=== PATIENT | female | born 1990 ===

== ENCOUNTER 2016-10-06 09:44 | Emergency (ER) | payer OTHER ==
[2016-10-06] MEDS ORDERED: Albuterol-Ipratrop 3 mg / 0.5 (3 ml) UD INH STA ×2 (10:16→12:33)
[2016-10-06] MEDS ORDERED: Albuterol-Ipratrop 3 mg / 0.5 (3 ml) UD ONE (10:19)
[2016-10-06 10:20] VITALS: BP 128/77; RESP 20; TEMP 98
--- NOTE | 2016-10-06 10:31 | ED PDOC ---
HPI: Asthma Time Seen by Provider: 10/06/16 10:03 Chief Complaint (Nursing): Shortness Of Breath Chief Complaint (Provider): asthma History Per: Patient History/Exam Limitations: no limitations Onset/Duration Of Symptoms: Days (x 1 ) Additional Complaint(s): Anna Erazo is a 25 year old female, with a previous medical history of asthma, who presents to the ED with complaints of shortness of breath associated with cough and wheezing since last night. Patient states symptoms are consistent with previous asthmatic symptoms. She believes changes in weather last night triggered these symptoms and reports no relief with albuterol treatments taken at home. Patient denies any previous intubations or hospital admissions for asthma. PMD: none provided Past Medical History Vital Signs: Last Vital Signs Temp 98 F 10/06/16 10:19 Pulse 94 H 10/06/16 10:19 Resp 20 10/06/16 10:19 BP 128/77 10/06/16 10:19 Pulse Ox 99 10/06/16 10:19 - Medical History PMH: Asthma - Family History Family History: States: Unknown Family Hx - Living Arrangements Living Arrangements: With Family - Social History Current smoker - smoking cessation education provided: Yes - Home Medications Home Medications: Ambulatory Orders Medication Instructions Recorded Albuterol 0.083% [Albuterol 0.083% 2.5 mg IH Q4 PRN #20 neb 10/06/16 Inhal Vania (2.5 mg/3 ml) UD] Albuterol HFA [Ventolin HFA 90 1 - 2 puff IH Q4 PRN #1 inhaler 10/06/16 mcg/actuation (8 g)] Prednisone 50 mg PO DAILY #4 tab 10/06/16 - Allergies Allergies/Adverse Reactions: Allergies Allergy/AdvReac Type Severity Reaction Status Date / Time No Known Allergies Allergy Verified 10/06/16 10:01 Review of Systems ROS Statement: Except As Marked, All Systems Reviewed And Found Negative Constitutional: Negative for: Fever, Chills Cardiovascular: Negative for: Chest Pain Respiratory: Positive for: Cough, Shortness of Breath, Wheezing. Negative for: Sputum Physical Exam - Reviewed Nursing Documentation Reviewed: Yes Vital Signs Reviewed: Yes - Physical Exam Appears: Positive for: Well, Non-toxic, No Acute Distress Head Exam: Positive for: ATRAUMATIC, NORMAL INSPECTION, NORMOCEPHALIC Skin: Positive for: Normal Color, Warm, Dry ENT: Positive for: Normal ENT Inspection Neck: Positive for: Normal, Painless ROM, Supple Cardiovascular/Chest: Positive for: Regular Rate, Rhythm Respiratory: Positive for: Wheezing (bilaterally ). Negative for: Decreased Breath Sounds, Accessory Muscle Use, Respiratory Distress Gastrointestinal/Abdominal: Positive for: Normal Exam, Bowel Sounds, Soft. Negative for: Tenderness Extremity: Positive for: Normal ROM. Negative for: Tenderness, Pedal Edema, Deformity, Swelling Neurologic/Psych: Positive for: Alert, Oriented - ECG O2 Sat by Pulse Oximetry: 99 (RA) Pulse Ox Interpretation: Normal Medical Decision Making Medical Decision Making: Initial Impression: asthma exacerbation Initial Plan: * duoneb * solu-medrol * peak flow pre/post treatment * reevaluation Reevaluation: test was positive and patient was informed. Patient with no symptoms of pain and bleeding therefore incidental. Over course of ER stay, asthma symptoms have improved. Time: 1500 Patient has no wheezing. Patient given smoking cessation education. Stale for discharge home, informed to follow up with OB and PCP for asthma. Scribe Attestation: Documented by Christina Ortiz and Cayla Goldman, acting as a scribe for Briejsh Ma DO. Provider Scribe Attestation: All medical record entries made by the Scribe were at my direction and personally dictated by me. I have reviewed the chart and agree that the record accurately reflects my personal performance of the history, physical exam, medical decision making, and the department course for this patient. I have also personally directed, reviewed, and agree with the discharge instructions and disposition. Disposition - Clinical Impression Clinical Impression: Asthma exacerbation, - Patient ED Disposition Is Patient to be Admitted: No Counseled Patient/Family Regarding: Studies Performed, Diagnosis, Need For Followup, Rx Given - Disposition [facility]errals[facility]] Disposition: Routine/Home Disposition Time: 14:55 Condition: STABLE Additional Instructions: See OB doctor as directed for evaluation of early . Use albuterol as directed for asthma, start prednisone if no improvement by tonight. There may be risk of harm with prednisone. stop smoking! Prescriptions: Albuterol 0.083% [Albuterol 0.083% Inhal Vania (2.5 mg/3 ml) UD] 2.5 mg IH Q4 PRN #20 neb PRN Reason: Wheezing Albuterol HFA [Ventolin HFA 90 mcg/actuation (8 g)] 1 - 2 puff IH Q4 PRN #1 inhaler PRN Reason: Shortness Of Breath Prednisone 50 mg PO DAILY #4 tab Instructions: Asthma (ED), How to Stop Smoking (ED), First Trimester (ED) Forms: [facility] ED School/Work Excuse
[2016-10-06 16:13] VITALS: PULSE 90
--- NOTE | 2016-10-09 15:24 | CARD ---
APPROVED REPORT EKG Measurement Heart [id number] <Conclusion> Normal sinus rhythm Normal ECG
[2016-10-10 13:30] VITALS: O2SAT 99
== END 2016-10-06 15:21 | disposition home or self-care (01) ==
LOC: EDSEX 09:44 → H.ER 09:44
DX: J45.901 Unspecified asthma with (acute) exacerbation (principal); Z32.01 Encounter for pregnancy test, result positive; F17.200 Nicotine dependence, unspecified, uncomplicated

== ENCOUNTER 2016-10-12 12:18 | Emergency (ER) | payer OTHER ==
[2016-10-12 12:31] VITALS: BP 134/62; PULSE 70; RESP 17; TEMP 98; O2SAT 99
[2016-10-12 13:14] LABS: RBC URINE 26 /hpf (0-3); URINE BACTERIA RARE (<OCC); URINE BILIRUBIN NEGATIVE (NEGATIVE); URINE BLOOD LARGE (NEGATIVE); URINE COLOR AMBER (YELLOW); URINE GLUCOSE (UA) NEG (Normal); URINE KETONE TRACE mg/dL (NEGATIVE); URINE LEUKOCYTE ESTERASE MOD Leu/uL (Negative); URINE PROTEIN 100 mg/dL (NEGATIVE); WBC URINE 30 /hpf (0-5)
[2016-10-12 13:24] LABS: MEAN CELL VOLUME 87.4 fl (81.0-99.0); MEAN CORPUSCULAR HEMOGLOBIN 28.6 pg (27.0-31.0); MEAN CORPUSCULAR HGB CONC 32.7 g/dL (33.0-37.0)
[2016-10-12 13:25] LABS: ALB/GLOB RATIO 1.2 (1.0-2.1); ALKALINE PHOSPHATASE 43 U/L (38-126); ALT/SGPT 34 U/L (9-52); AST/SGOT 21 U/L (14-36); BILIRUBIN,TOTAL 0.7 mg/dl (0.2-1.3); BLOOD UREA NITROGEN 5 mg/dl (7-17); CALCIUM 9.4 mg/dL (8.4-10.2); CARBON DIOXIDE 18 mmol/L (22-30); CHLORIDE 106 mmol/L (98-107); GFR AFRICAN-AMERICAN > 60; GLUCOSE,RANDOM 109 mg/dL (65-105); POTASSIUM 3.9 MMOL/L (3.6-5.0); SODIUM 138 mmol/l (132-148); TOTAL PROTEIN 7.6 G/DL (6.3-8.2)
[2016-10-12 13:43] LABS: PARTIAL THROMBOPLASTIN TIME 27.9 Seconds (25.6-37.1)
--- NOTE | 2016-10-12 14:06 | ED PDOC ---
HPI: Female Pain Time Seen by Provider: 10/12/16 12:23 Chief Complaint (Nursing): Female Genitourinary Chief Complaint (Provider): Vaginal bleeding in , History Per: Patient History/Exam Limitations: no limitations Onset/Duration Of Symptoms: Hrs (3) Current Symptoms Are (Timing): Still Present Severity: None Additional Complaint(s): Pt states she was in ER last week for her asthma and had a positive test. Pt states she began bleeding today a few hours [employer]. Pt denies pain. Pt states her last normal menses was 09/06/16. Pt reports spontaneous miscarriage 1 year ago when she was 4-5 weeks gestation. Past Medical History Reviewed: Historical Data, Nursing Documentation, Vital Signs Vital Signs: Last Vital Signs Temp 98 F 10/12/16 12:28 Pulse 70 10/12/16 12:28 Resp 17 10/12/16 12:28 BP 134/62 10/12/16 12:28 Pulse Ox 99 10/12/16 12:28 - Medical History PMH: Asthma - Surgical History Surgical History: No Surg Hx - Family History Family History: States: Unknown Family Hx - Living Arrangements Living Arrangements: With Family - Social History Current smoker - smoking cessation education provided: No Alcohol: None Drugs: Denies - Home Medications Home Medications: Ambulatory Orders Medication Instructions Recorded Albuterol 0.083% [Albuterol 0.083% 2.5 mg IH Q4 PRN #20 neb 10/06/16 Inhal Vania (2.5 mg/3 ml) UD] Albuterol HFA [Ventolin HFA 90 1 - 2 puff IH Q4 PRN #1 inhaler 10/06/16 mcg/actuation (8 g)] Prednisone 50 mg PO DAILY #4 tab 10/06/16 - Allergies Allergies/Adverse Reactions: Allergies Allergy/AdvReac Type Severity Reaction Status Date / Time No Known Allergies Allergy Verified 10/06/16 10:01 Review of Systems ROS Statement: Except As Marked, All Systems Reviewed And Found Negative Genitourinary Female: Positive for: Vaginal Bleeding Physical Exam - Reviewed Nursing Documentation Reviewed: Yes Vital Signs Reviewed: Yes - Physical Exam Appears: Positive for: Well, Non-toxic, No Acute Distress Head Exam: Positive for: ATRAUMATIC, NORMAL INSPECTION, NORMOCEPHALIC Skin: Positive for: Normal Color, Warm, DRY Eye Exam: Positive for: Normal appearance ENT: Positive for: Normal ENT Inspection Neck: Positive for: Normal, Painless ROM Cardiovascular/Chest: Positive for: Regular Rate, Rhythm Respiratory: Positive for: Normal Breath Sounds. Negative for: Accessory Muscle Use, Respiratory Distress Gastrointestinal/Abdominal: Positive for: Normal Exam, Bowel Sounds, Soft. Negative for: Tenderness Back: Positive for: Normal Inspection Extremity: Positive for: Normal ROM Neurologic/Psych: Positive for: Alert, Oriented - Laboratory Results Result Diagrams: 10/12/16 13:05 10/12/16 13:05 - ECG O2 Sat by Pulse Oximetry: 99 Medical Decision Making Medical Decision Making: IUP 12 6 Disposition - Clinical Impression Clinical Impression: Vaginal bleeding in - Patient ED Disposition Is Patient to be Admitted: No Counseled Patient/Family Regarding: Diagnosis, Need For Followup - Disposition [facility]errals[facility]] Disposition: Routine/Home Disposition Time: 17:46 Condition: GOOD Additional Instructions: Please begin vitamins. Instructions: First Trimester Vaginal Bleed (ED)
--- NOTE | 2016-10-12 17:16 | US ---
OB ultrasound dated 10/12/2016. History: Vaginal bleeding. Sonographic evaluation of the uterus performed. Findings: The current study reveals a single living intrauterine gestation in breech presentation. The placenta is posteriorly located free of the cervical os. Measurements: BPD: 1.92 cm = 13 weeks 0 days HC: 7.66 cm = 13 weeks 2 days AC: 6.6 cm = 13 weeks 2 days FL: 0.79 cm = 12 weeks 3 days Average ultrasound age: 12 weeks 6 days +/-0 weeks 6 days Heart rate: 146 BPM Right ovary measures approximately 5.0 x 4.0 x 2.0 cm right ovary exhibits arterial flow. Left ovary measures 3.0 x 3.0 x 2.2 cm and also exhibits arterial flow. No evidence of free fluid seen in the cul de sac Impression: Single living intrauterine gestation in breech presentation with average ultrasound age approximately 12 weeks 6 days +/-0 weeks 6 days. Heart rate document 146 BPM see above discussion for additional details
== END 2016-10-12 17:55 | disposition home or self-care (01) ==
LOC: H.ER 12:18
DX: O20.9 Hemorrhage in early pregnancy, unspecified (principal); Z3A.12 12 weeks gestation of pregnancy

== ENCOUNTER 2017-01-14 00:52 | Emergency (ER) | payer OTHER ==
[2017-01-14 01:57] VITALS: PULSE 88; RESP 16; TEMP 97.5
--- NOTE | 2017-01-14 02:09 | ED PDOC ---
HPI: Chest Pain Time Seen by Provider: 01/14/17 01:18 Chief Complaint (Nursing): Chest Pain Chief Complaint (Provider): chest pain History Per: Patient History/Exam Limitations: no limitations Onset/Duration Of Symptoms: Days (4), Waxing/Waning Current Symptoms Are (Timing): Still Present Quality: Sharp, Tightness Additional History Per: Patient Additional Complaint(s): 26 y/o female, approx 26 weeks gestation, presents with intermittent chest pain x 4 days. Patient states pain begins as sharp, left-sided pain, then turns in to diffuse tightness across the chest, with associated tingling to right hand. Patient states symptoms last a few minutes then resolve. Denies fever, headache , dizziness, nausea/vomiting, shortness of breath, palpitations, abdominal pain , vaginal bleeding/discharge, leg pain/swelling, recent travel. Past Medical History Reviewed: Historical Data, Nursing Documentation, Vital Signs Vital Signs: Last Vital Signs Temp 97.5 F L 01/14/17 01:49 Pulse 88 01/14/17 02:21 Resp 16 01/14/17 02:21 BP 151/82 H 01/14/17 01:49 Pulse Ox 100 01/14/17 02:21 - Medical History PMH: Asthma - Surgical History Surgical History: No Surg Hx - Family History Family History: States: Unknown Family Hx - Home Medications Home Medications: Ambulatory Orders Medication Instructions Recorded Albuterol 0.083% [Albuterol 0.083% 2.5 mg IH Q4 PRN #20 neb 10/06/16 Inhal Vania (2.5 mg/3 ml) UD] Albuterol HFA [Ventolin HFA 90 1 - 2 puff IH Q4 PRN #1 inhaler 10/06/16 mcg/actuation (8 g)] Prednisone 50 mg PO DAILY #4 tab 10/06/16 metroNIDAZOLE [Flagyl] 500 mg PO BID #14 tab 10/12/16 - Allergies Allergies/Adverse Reactions: Allergies Allergy/AdvReac Type Severity Reaction Status Date / Time No Known Allergies Allergy Verified 10/06/16 10:01 Review of Systems ROS Statement: Except As Marked, All Systems Reviewed And Found Negative Cardiovascular: Positive for: Chest Pain Physical Exam - Reviewed Nursing Documentation Reviewed: Yes Vital Signs Reviewed: Yes - Physical Exam Appears: Positive for: Well, Non-toxic, No Acute Distress Head Exam: Positive for: ATRAUMATIC, NORMAL INSPECTION, NORMOCEPHALIC Skin: Positive for: Normal Color Eye Exam: Positive for: Normal appearance ENT: Positive for: Normal ENT Inspection Cardiovascular/Chest: Positive for: Regular Rate, Rhythm Respiratory: Positive for: Normal Breath Sounds Gastrointestinal/Abdominal: Positive for: Normal Exam Back: Positive for: Normal Inspection Extremity: Positive for: Normal ROM Neurologic/Psych: Positive for: Alert, Oriented - Laboratory Results Result Diagrams: 01/14/17 02:20 01/14/17 02:20 - ECG ECG: Positive for: Viewed By Me (reviewed by ED attending) ECG Rhythm: Positive for: Sinus Rhythm O2 Sat by Pulse Oximetry: 700 - Radiology X-Ray: Viewed By Me X-Ray Interpretation: No Acute Disease - Progress ED Course And Treament: labs, ekg Patient educated on findings, discharged with instructions to follow up PMD 2-3 days. Return to ED for worsening/concerning symptoms. Disposition - Clinical Impression Clinical Impression: Atypical chest pain, Paresthesia - Patient ED Disposition Is Patient to be Admitted: No Counseled Patient/Family Regarding: Studies Performed, Diagnosis, Need For Followup - Disposition Disposition: Routine/Home Disposition Time: 03:42 Condition: STABLE Instructions: Chest Pain (ED), Paresthesia (ED)
[2017-01-14 02:31] LABS: BASO % 0.3 % (0.0-2.0); EOS # 0.2 K/uL (0.0-0.7); EOS % 1.8 % (0.0-4.0); HEMATOCRIT 35.9 % (34.0-47.0); LYMPH # 2.9 K/uL (1.0-4.3); LYMPH % 22.6 % (20.0-40.0); MEAN CELL VOLUME 88.1 fl (81.0-99.0); MEAN CORPUSCULAR HEMOGLOBIN 28.1 pg (27.0-31.0); MEAN CORPUSCULAR HGB CONC 31.9 g/dL (33.0-37.0); MEAN PLATELET VOLUME 9.2 fl (7.2-11.7); MONO # 0.9 K/uL (0.0-0.8); MONO % 7.4 % (0.0-10.0); NEUT # 8.7 K/uL (1.8-7.0); NEUT % 67.9 % (50.0-75.0); NRBC % 0.1 % (0.0-0.0); RED CELL DISTRIBUTION WIDTH 12.9 % (11.5-14.5); WHITE BLOOD COUNT 12.9 K/uL (4.8-10.8)
[2017-01-14 02:41] LABS: ALB/GLOB RATIO 1.2 (1.0-2.1); ALKALINE PHOSPHATASE 67 U/L (38-126); ALT/SGPT 23 U/L (9-52); AST/SGOT 17 U/L (14-36); BILIRUBIN,TOTAL 0.4 mg/dl (0.2-1.3); BLOOD UREA NITROGEN 6 mg/dl (7-17); CALCIUM 9.1 mg/dL (8.4-10.2); CARBON DIOXIDE 20 mmol/L (22-30); CHLORIDE 104 mmol/L (98-107); GFR AFRICAN-AMERICAN > 60; GLUCOSE,RANDOM 92 mg/dL (65-105); SODIUM 137 mmol/l (132-148)
[2017-01-14 03:58] VITALS: BP 115/68; O2SAT 700
--- NOTE | 2017-01-14 10:32 | CARD ---
APPROVED REPORT EKG Measurement Heart [id number] <Conclusion> Normal sinus rhythm Normal ECG
== END 2017-01-14 03:43 | disposition home or self-care (01) ==
LOC: H.ER 00:52
DX: R07.89 Other chest pain (principal); R20.2 Paresthesia of skin; O26.892 Other specified pregnancy related conditions, second trimester; Z3A.26 26 weeks gestation of pregnancy; O99.512 Diseases of the respiratory system complicating pregnancy, second trimester; J45.909 Unspecified asthma, uncomplicated

== ENCOUNTER 2017-04-07 15:17 | Emergency (ER) | payer MEDICAID ==
[2017-04-07 15:35] VITALS: BMI 44.7
--- NOTE | 2017-04-07 16:19 | OBHP ---
Datetime: 04/07/2017 16:08 IP Adm Impression: Term, intrauterine ; No Active Labor IP Chief Complaint Other: Vaginal Spotting after wiping IP Adm Impression Other: Spotting IP Admit Plan: Observation/Evaluation; Discharge home Admit Comment, IP Provider: 26yo with IUP at 38.3wks presenting to the [facility] with a c/o some vag inal spotting after wiping. She denies any previous episode. Bryant at the beginning of the preg fatimah. PNC at [facility]. Uncomplicated course. TOCo- Irritability FHR- Category 1, Cx- 0/0/-3. Speculum exam- Negative. Assessment: IUP at 38wks Vaginal Bleeding, not found NST - reactive. Plan Pt reassured and labor instructions given. D/C Home F/U with OB Doctor. Questions from Pt answered. Extremities - PN: Normal Abdomen - PN: Normal Back - PN: Normal Lungs - PN: Normal Heart - PN: Normal Neurologic - PN: Normal General - PN: Normal Presentation-Admit: Vertex FHR - Baseline A Provider: 130 Membranes, Provider: Intact Comments, ACOG Physical Exam: Abd: Soft, NT, BS- present Speculum exam: No lesions identified on the vulva or vagina. Cervix appears normal. No evidence of bleeding or blood seen. Cervix appeared closed. Gestation - Est Wks by US: 38.3 Vital Signs Provider: Reviewed IP Chief Complaint: Maternal discomfort; Other NICHD Variability Prov Fetus A: Moderate 6-25bpm NICHD Accel Fetus A IP Provider: [id number] FHR Category Provider Fetus A: Category I NICHD Decel Fetus A IP Provider: None Dilatation, Provider: 0 Effacement, Provider: 0 Station, Provider: -3 Genitourinary Exam: Normal
[2017-04-07 21:47] VITALS: BP 111/59; PULSE 120
== END 2017-04-07 16:35 | disposition home or self-care (01) ==
LOC: H.EROB2 15:17
DX: O26.853 Spotting complicating pregnancy, third trimester (principal); Z3A.38 38 weeks gestation of pregnancy; O47.1 False labor at or after 37 completed weeks of gestation

== ENCOUNTER 2017-04-11 05:43 | Inpatient (IN) | payer MEDICAID ==
[2017-04-11] MEDS: Lactated Ringer's 1,000 ML IV SCH ×5 (08:30→20:00)
[2017-04-11 08:35] LABS: BASO % 0.4 % (0.0-2.0); EOS # 0.1 K/uL (0.0-0.7); EOS % 1.1 % (0.0-4.0); HEMATOCRIT 37.5 % (34.0-47.0); LYMPH # 2.6 K/uL (1.0-4.3); LYMPH % 20.2 % (20.0-40.0); MEAN CELL VOLUME 85.6 fl (81.0-99.0); MEAN CORPUSCULAR HEMOGLOBIN 27.6 pg (27.0-31.0); MEAN CORPUSCULAR HGB CONC 32.2 g/dL (33.0-37.0); MEAN PLATELET VOLUME 9.5 fl (7.2-11.7); MONO % 7.6 % (0.0-10.0); NEUT % 70.7 % (50.0-75.0); RED CELL DISTRIBUTION WIDTH 13.3 % (11.5-14.5); WHITE BLOOD COUNT 12.8 K/uL (4.8-10.8)
--- NOTE | 2017-04-11 08:55 | OBPN ---
Datetime: 04/11/2017 08:50 IP Informed Consent Obtain: Vaginal Delivery IP Procedures: Sterile Vag Exam Membranes, Provider: Intact Contraction Comments Provider: q 3 mins FHR - Baseline A Provider: 135 IP Progress Note Comment: Patient evaluated VE=FT/Thick/high FHR = 135 mod jessica, no accels, no decels TOCO = ctxning q 3-4 mins A/P 1. Will start Cytotec 50mcg PO q 4 hrs, and will have patient have diet 2. CEFM and TOCO 3. Re-evaluate as needed Vital Signs Provider: Reviewed; Within Normal Limits NICHD Variability Prov Fetus A: Moderate 6-25bpm Dilatation, Provider: FT Effacement, Provider: Thick Station, Provider: -3 NICHD Decel Fetus A IP Provider: None Datetime: 04/11/2017 07:00 Pool Provider: Positive Nitrazine Provider: Negative Gestation - Est Wks by US: 39.0 Presentation-Admit: Vertex NICHD Accel Fetus A IP Provider: [id number] FHR Category Provider Fetus A: Category I
[2017-04-11] MEDS ORDERED: Nalbuphine 20 mg/ml Inj (1 ml) IVP PRN (18:58)
[2017-04-11] MEDS ORDERED: Fentanyl/Bupivacaine HCl 250 ML EPI ONE (19:57)
[2017-04-12] MEDS: Lactated Ringer's 1,000 ML IV SCH (04:00)
--- NOTE | 2017-04-12 11:38 | OBPN ---
Datetime: 04/12/2017 11:34 FHR - Baseline A Provider: 120 Presentation-Admit: Vertex IP Progress Note Comment: s: no c/o- comfortable with epidural i: 39.1wk induction for prom s/p cytotec x6 p: begin pitocin. plan d/w pt FHR Category Provider Fetus A: Category I NICHD Variability Prov Fetus A: Moderate 6-25bpm Dilatation, Provider: 3 Effacement, Provider: 80 Station, Provider: -3 NICHD Decel Fetus A IP Provider: None
[2017-04-12] MEDS ORDERED: Oxytocin 30 UNITS in Sodium Chloride 0.9% 500 ML IV SCH ×3 (11:45→22:35)
[2017-04-12] MEDS ORDERED: Fentanyl/Bupivacaine HCl 250 ML EPI ONE (14:38)
[2017-04-12] MEDS ORDERED: Oxycodone/Acetaminophen 5/325 mg Tab PO PRN ×2 (16:20→22:35)
[2017-04-12] MEDS ORDERED: Bupivacaine HCl 0.25% PF (10 ml) Inj ONE (16:42)
[2017-04-12] MEDS ORDERED: AMPicillin 2 GM in Sodium Chloride 0.9% 100 ML IVPB STA (17:43)
[2017-04-12] MEDS ORDERED: Oxytocin 30 UNITS in Sodium Chloride 0.9% 500 ML IV ONE (20:25)
[2017-04-12] MEDS ORDERED: AMPicillin 1 GM in Sodium Chloride 0.9% 100 ML IVPB SCH (21:45)
[2017-04-12] MEDS ORDERED: Lactated Ringer's 1,000 ML IV SCH (22:35)
--- NOTE | 2017-04-12 22:50 | OBDS ---
DELIVERY PERSONNEL Delivery Doctor: Nael Toussaint MD Talent Acquisition Program Manager: Jimmy White RN Anesthesiologist: Cristina Riggs MD Resident: Dr. Benjamin Rendon MATERNAL INFORMATION Delivery Anesthesia: Epidural Medications in Delivery: Pitocin Estimated Blood Loss (ml): 200 Placenta Cultured: No Maternal Complications: Premature Rupture of Membranes Provider Comments: Pt placed in the dorsal lithotomy position, prepped and draped in sterile fashion . Over a intact perineum, normal spontaneous vaginal delivery of live male infant, with epidural anes thesia, no nucchal cord, placed on mother abdomen, oropharynx and nasopharynx bulb-suctioned. Cord clamped and cut, blood collected. 9/9. Spontaneous delivery of placenta manually with 3-v essel cord. 2nd degree perineal laceration repaired. EBL 200cc. compound presentation with rue LABOR SUMMARY EDC: 04/18/2017 00:00 No. Babies in Womb: 1 Attempted: No Labor Anesthesia: Epidural LABOR INFORMATION Reason for Induction: Premature Rupture of Membranes Onset of Labor: 04/12/2017 16:29 Complete Dilatation: 04/12/2017 19:10 Cervical Ripening Agents: Cytotec @ (Annotations: 6th and final dose of cytotec given ) Oxytocin: Induction Group B Beta Strep: Not Done Antibiotics # of Doses: 1 Antibiotics Time of Last Dose: 1809 Steroids Given: None Reason Steroids Not Administered: Not Applicable MEMBRANES Membranes Rupture Method: Spontaneous Rupture of Membranes: 04/11/2017 05:00 Length of Rupture (hrs): 38.67 Amniotic Fluid Color: Clear Amniotic Fluid Amount: Large Amniotic Fluid Odor: Normal STAGES OF LABOR Stage 1 hrs: 2 Stage 1 min: 41 Stage 2 hrs: 0 Stage 2 min: 30 Stage 3 hrs: 0 Stage 3 min: 6 Total Time in Labor hrs: 3 Total Time in Labor min: 17 VAGINAL DELIVERY Episiotomy: None Laceration Extension: Second Degree Laceration Type: Perineal; Vaginal Laceration Repair: Yes Laceration Repair Note: Repair of 2nd degree vaginal and perineal laceration with 3-0 polysorb. Initial Vag Sponge Count: 5 Final Vag Sponge Count: 5 Initial Vag Sharps Count: 1 Final Vag Sharps Count: 1 Sponge Count Correct: Yes Sharps Count Correct: Yes Count Comment: Laps 5 Instruments 15 Sharps 1 all count correct and acknowledge BABY A INFORMATION Delivery Date/Time: 04/12/2017 19:40 Method of Delivery: Vaginal Born in Route : No : N/A Forceps: N/A Vacuum Extraction: N/A Shoulder Dystocia : No SHOULDER DYSTOCIA BABY A Delivery Date/Time: 04/12/2017 19:40 PRESENTATION/POSITION BABY A Presentation: Compound Breech Presentation: N/A PLACENTA INFORMATION BABY A Placenta Delivery Time : 04/12/2017 19:46 Placenta Method of Delivery: Spontaneous Placenta Status: Delivered SCORES BABY A Heart Rate 1 min: >100 bpm Resp Effort 1 min: Good Cry Reflex Irritability 1 min: Cough or Sneeze or Pulls Away Muscle Tone 1 min: Active Motion Color 1 min: Body [place], Extremities Blue Resuscitation Effort 1 min: Tactile Stimulation SCORE 1 MIN: 9 Heart Rate 5 min: >100 bpm Resp Effort 5 min: Good Cry Reflex Irritability 5 min: Cough or Sneeze or Pulls Away Muscle Tone 5 min: Active Motion Color 5 min: Body [place], Extremities Blue Resuscitation Effort 5 min: N/A SCORE 5 MIN: 9 INFORMATION BABY A Gestational Age at Delivery: 39.1 Gestational Status: Term Outcome : Liveborn Infant Condition : Stable Infant Sex: Male IDENTIFICATION/MEDS BABY A ID Band Number: [id number] ID Band Location: Left Leg; Left Arm WEIGHT/LENGTH BABY A Birthweight (gms): 3305 Infant Weight (lb): 7 Weight (oz): 5 CORD INFORMATION BABY A No. Cord Vessels: 3 Nuchal Cord : N/A Cord Blood Taken: Yes Suction: Mouth; Nose ASSESSMENT BABY A Complications: None Physical Findings at Delivery: Within Normal Limits Infant Respirations: Appears Normal [employer] Consultant/ALS Called : No Infant Care By: Samuel RN Transferred To: Remains with Mother
[2017-04-12] MEDS ORDERED: Albuterol 0.083% Inhal Sol (2.5 mg/3 mL) UD INH PRN (23:54)
[2017-04-13] MEDS ORDERED: Albuterol HFA 90 mcg/actuation (8 g) INH PRN (00:21)
[2017-04-13 06:18] LABS: HEMATOCRIT 31.8 % (34.0-47.0); MEAN CELL VOLUME 84.7 fl (81.0-99.0); MEAN CORPUSCULAR HEMOGLOBIN 27.9 pg (27.0-31.0); MEAN CORPUSCULAR HGB CONC 32.9 g/dL (33.0-37.0); RED CELL DISTRIBUTION WIDTH 13.5 % (11.5-14.5); WHITE BLOOD COUNT 12.8 K/uL (4.8-10.8)
--- NOTE | 2017-04-13 11:43 | OBPPN ---
Datetime: 04/13/2017 07:42 PP Pain Prov: Within normal limits PP Nausea Prov: Denies PP Flatus Prov: Yes PP BM Prov: No PP Heart Prov: Normal PP Lungs Prov: Normal PP Abdomen/Uterus Prov: Normal PP Lochia Prov: Normal PP CVA Tenderness Prov: Normal PP Extremities Prov: Normal PP C/S Incision Prov: Not Applicable PP Progress Prov: Normal PP Impression Prov: Normal progression PP Plan Prov: Continue present management PP Progress Note Prov: 26 y/o F now on PPD1. Pt had a on 04/12 with NO complications. Pt reports feeling well. No acute events overnight. Pain is mild and tolerable. Pt urinating and ambu lating without difficulties. Pt is passing gasses but NO bowel movement. Pt afebrile and tolerating P O. Lochia is improving and decreasing in quantity. Pt trying to breastfeed but mainly providing formu la for now. Pt denies fever, headache, visual disturbances, CP, SOB, N/V or pruritus. PE Gen: Pt resting comfortably on bed, AAOx3, not in acute distress. Lungs: CTA B/L. No W/R/R. CV: S1 S2 present, regular rhythm. Abd: BS+, soft, fundus of uterus firm and bellow umbilicus. Ext: no edema, neg Lula's sign, non-tender calves. NEURO/PSYCH: no grossly focal deficit, preserved affect and mood. A/P: 26 y/o F on PPD 2, recovering well. -Continue medical management - and ambulation encouraged. Case discussed with OB production or plant engineer. Benjamin PGY-1. Addendum by Dr. Barrios: I have evaluated the patient independently and I agree with the above IP PP Procedures: None Vital Signs Provider PP: Reviewed
[2017-04-13] MEDS ORDERED: Lidocaine 1% 20 MG/2 ML PF AMP SC ONE (12:24)
[2017-04-14 20:40] VITALS: BP 123/63; PULSE 97; RESP 20; TEMP 97.8; O2SAT 99
--- NOTE | 2017-04-15 11:05 | OBPPN ---
Datetime: 04/14/2017 08:42 PP Pain Prov: Within normal limits PP Nausea Prov: Denies PP Flatus Prov: Yes PP BM Prov: Yes PP Heart Prov: Normal PP Lungs Prov: Normal PP Abdomen/Uterus Prov: Normal PP Lochia Prov: Normal PP CVA Tenderness Prov: Normal PP Extremities Prov: Normal PP C/S Incision Prov: Not Applicable PP Progress Prov: Normal PP Impression Prov: Normal progression PP Plan Prov: Discharge PP Progress Note Prov: 26 y/o F now on PPD2. Pt had a on 04/12 with NO complications. Pt reports feeling well. No acute events overnight. No pain. Pt urinating and ambulating without diff iculties. Pt is passing gasses but NO bowel movement. Pt afebrile and tolerating PO. Lochia is less t perkins menses. Pt trying to breastfeed but mainly providing formula for now. Pt denies fever, headache, visual disturbances, CP, SOB, N/V or pruritus. PE Gen: Pt resting comfortably on bed, AAOx3, not in acute distress. Lungs: CTA B/L. No W/R/R. CV: S1 S2 present, regular rhythm. Abd: BS+, soft, fundus of uterus firm and bellow umbilicus. Ext: no edema, neg Lula's sign, non-tender calves. NEURO/PSYCH: no grossly focal deficit, preserved affect and mood. A/P: 26 y/o F on PPD 2, recovering well. -Will discharged pt home today. -Encourage . -Continue PNV 1 tab PO daily. -Ibuprofen 600mg PO PRN for moderate/severe pain. -Ambulate with caution, no heavy lifting, nothing per vagina for 6 weeks. -If excessive bleeding, intolerable pain or fever despite medication, go to ER. - F/U with clinic within 4-6 weeks for post- evaluation. Case discussed with OB director of instruction. Benjamin PGY-1. OB H addendum: Patient seen and examined by me agree with above assessment and plan. IP PP Procedures: None Vital Signs Provider PP: Reviewed
== END 2017-04-14 15:37 | disposition home or self-care (01) | DRG 775 ==
LOC: H.EROB2 05:43 → H.L&D 07:35 → H.OB/GYN 04-12 22:15
PROVIDERS: ADMIT Obstetrics & Gynecology; ATTEND Obstetrics & Gynecology
PROC: 4A1HXCZ Monitoring of Products of Conception, Cardiac Rate, External Approach (ICD-10-PCS; 2017-04-11)
PROC: 10E0XZZ Delivery of Products of Conception, External Approach (ICD-10-PCS; principal; 2017-04-12)
PROC: 0KQM0ZZ Repair Perineum Muscle, Open Approach (ICD-10-PCS; 2017-04-12)
DX: O32.6XX0 Maternal care for compound presentation, not applicable or unspecified (principal); O42.92 Full-term premature rupture of membranes, unspecified as to length of time between rupture and onset of labor; O70.1 Second degree perineal laceration during delivery; Z37.0 Single live birth; Z3A.39 39 weeks gestation of pregnancy